=== PATIENT | male | born 1950 | race African-American/Black ===

== ENCOUNTER 2021-08-25 14:30 | Inpatient (IN) | payer BC, OTHER ==
[~2021-08-25] VITALS: Ht 172.7 cm; Wt 135.2 kg
[2021-08-25 15:01] VITALS: BP_SYST 176
--- NOTE | 2021-08-25 15:07 | NUR ---
Patient to ER bed TENT 01 for evaluation. Side rails up.
--- NOTE | 2021-08-25 15:35 | NUR ---
ER DR. CLARKE EXAMINING PT
[2021-08-25 17:20] LABS: BASOPHILS # (AUTO) 0.1 K/uL (0.0-0.2); BASOPHILS % (AUTO) 0.9 % (0.0-2.0); EOSINOPHILS # (AUTO) 0.2 K/uL (0.0-0.4); EOSINOPHILS % (AUTO) 3.2 % (0.0-4.0); HEMATOCRIT 39.2 % (36-54); HEMOGLOBIN 13.1 g/dL (14.0-18.0); LYMPHOCYTES # (AUTO) 1.5 K/uL (1.0-5.5); LYMPHOCYTES % (AUTO) 21.7 % (20.5-51.5); MEAN CORPUSCULAR HEMOGLOBIN 30 pg (27-31); MEAN CORPUSCULAR HGB CONC 34 % (32-36); MEAN CORPUSCULAR VOLUME 89 fL (79.0-98.0); MONOCYTES # (AUTO) 0.7 K/uL (0.0-1.0); NEUTROPHILS # (AUTO) 4.5 K/uL (1.8-7.7); NEUTROPHILS % (AUTO) 64.2 % (40.0-70.0); PLATELET COUNT (AUTO) 217 K/uL (130-430); RED BLOOD CELL COUNT(AUTO) 4.41 MIL/uL (4.2-6.2); RED CELL DISTRIBUTION WIDTH 15.4 % (9.0-15.0); WHITE BLOOD COUNT (AUTO) 7.1 K/uL (4.8-10.8)
[2021-08-25 17:25] LABS: ANION GAP 5 (5-15); CALCIUM 9.3 mg/dL (8.4-11.0); CHLORIDE 103 mmol/L (98-107); CREATININE 1.26 mg/dL (0.55-1.30); GLUCOSE 99 mg/dL (70-99); POTASSIUM 3.3 mmol/L (3.5-5.1); SODIUM SERUM 144 mmol/L (136-145); UREA NITROGEN, BLOOD 12 mg/dL (8-21)
[2021-08-25 17:27] LABS: GFR AFRICAN AMERICAN 73 mL/min (>90)
[2021-08-25 17:33] LABS: ALANINE AMINOTRANSFERASE 60 U/L (12-78); ALBUMIN 3.3 g/dL (3.4-4.8); ASPARTATE AMINOTRANSFERASE 31 U/L (10-37); TOTAL BILIRUBIN 0.8 mg/dL (0.0-1.0)
[2021-08-25] MEDS ORDERED: ENOXAPARIN SODIUM 100 MG/ML SYRINGE SUBCUT ONE (17:45)
[2021-08-25] MEDS ORDERED: ASPIRIN 325 MG TABLET PO ONE (17:45)
[2021-08-25] MEDS ORDERED: FUROSEMIDE 40 MG/4 ML VIAL IVP ONE (18:15)
--- NOTE | 2021-08-25 23:11 | NUR ---
PT BIB , WITH COMPLAINT OF SOB. PT STATED HE HAS NEVER EXPERIENCED THIS ISSUE BEFORE, PT STATED HE DOES NOT HAVE ANY PAIN. DOES HAVE SOME ADEMA BILATERAL TO LOWER EXTREMETIES. PT HR IS 47 ADV CHARGE NURSE NORAH. DR CASTLE WILL BE MADE AWRE ONCE HE RETURNS
[2021-08-25] MEDS ORDERED: ENOXAPARIN SODIUM 100 MG/ML SYRINGE ONE ×2 (23:19→23:35)
[2021-08-25] MEDS ORDERED: ASPIRIN 325 MG TABLET ONE (23:20)
[2021-08-25] MEDS ORDERED: FUROSEMIDE 40 MG/4 ML VIAL ONE (23:38)
--- NOTE | 2021-08-26 00:53 | NUR ---
Admit bed requested Patient will be admitted to care of [KATIE]. Admitted to [TELEMETRY] unit. Diagnosis [CHF, ELEVATED TRIPONIN] Inpatient (Yes or No) [Y] Observation (Yes or No) [N] Orientation concerns or request close to nursing station (Yes or No) [N] Covid Status [NEGATIVE] On vent or bipap [NO] Isolation requirements [NO] Needs a sitter [NO] From Home (Yes or if No enter name of facility) [YES] Requires Dialysis (Yes or No) [NO] Med Rec Completed (Yes of No) [YES]
[2021-08-26] MEDS ORDERED: SIMV20TA2 PO (00:59)
[2021-08-26] MEDS ORDERED: HYDR25TA4 PO (00:59)
[2021-08-26] MEDS ORDERED: ATEN50TA PO (00:59)
[2021-08-26] MEDS ORDERED: METF-518 PO (01:04)
[2021-08-26] MEDS ORDERED: GLIP10TA21 PO (01:04)
--- NOTE | 2021-08-26 01:33 | NUR ---
PT O2 SAT WAS DROPPING TO 88% HE SLEPT. PLACED PT ON NASAL CANULA AT 2L SAT ELEVATED TO 94%
--- NOTE | 2021-08-26 02:00 | NUR ---
Patient will be admitted to care of DR BANSAL. Admitted to unit. Will go to room . Belongings list completed. Complete and up to date summary report printed. SBAR report to be given at bedside with opportunity for questions.
--- NOTE | 2021-08-26 02:10 | NUR ---
ADMISSION NOTE Received patient from ER via gurney. Patient admitted with diagnosis of CHF, Elevated Troponin. Patient is awake, alert, oriented X 4. Patient oriented to hospital room, call light, toileting, pain management and safety-teach back done. Patient informed that MARBELLA Salazar will be primary nurse and that their room number is 111A. Personal belongings checked and Belongings List documented. Call light within reach.
--- NOTE | 2021-08-26 02:30 | NUR ---
CONSULTATION CALLED FOR DR. Lesly SHARMA FOR CONSULT FOR CHF. ELEVATED TROPONIN ORDER BY DR. SANCHEZ STAFF HUNG UP PHONE BEFORE NAME WAS PRESENTED
[2021-08-26 03:00] VITALS: BP_SYST 153; BP_SYST 155
--- NOTE | 2021-08-26 06:28 | NUR ---
pt.assessed.pt.presents quiescent affect;calm,somnolent.per flacc pain mgx pt.absent facial grimaces/body posturing. o2-sat%=96%.pt.capable to reposition self.call light/telephone w/in access of the pt.
--- NOTE | 2021-08-26 11:21 | NUR ---
CONSULTATION PAGED/CALLED Reason for Consultation: [] ABNORMAL CHEST XRAY Person Who was Notified: [] YANI Consulting Physician: [] DR CORTES Nut Sheller Machine Operator Specialty: [] PULMO Ordering Physician: [] DR BANSAL
[2021-08-26] MEDS ORDERED: FUROSEMIDE 40 MG/4 ML VIAL IVP ONE (12:00)
[2021-08-26] MEDS: SIMVASTATIN 20 MG TABLET PO SCH (17:30)
[2021-08-26] MEDS: ATENOLOL 50 MG TABLET (TENORMIN) PO SCH (17:30)
--- NOTE | 2021-08-26 17:56 | NUR ---
Dietitian Recommendations * Continue Cardiac diet LP, RD Please refer to Nutrition Assessment for details. Addendum: 08/26/21 at [address] Amended: Links added.
[2021-08-26] MEDS: glipiZIDE XL 5 MG TAB ( GLUCOTROL XL) PO SCH (18:32)
[2021-08-26] MEDS: FUROSEMIDE 40 MG/4 ML VIAL IVP SCH (23:13)
[2021-08-26] MEDS: HYDROCHLOROTHIAZIDE 25 MG TABLET (HCTZ) PO SCH (23:14)
[2021-08-27 07:22] LABS: CALCIUM 9.1 mg/dL (8.4-11.0); CREATININE 1.29 mg/dL (0.55-1.30)
[2021-08-27 07:36] LABS: BASOPHILS % (AUTO) 0.9 % (0.0-2.0); EOSINOPHILS # (AUTO) 0.2 K/uL (0.0-0.4); EOSINOPHILS % (AUTO) 4.5 % (0.0-4.0); HEMOGLOBIN 13.3 g/dL (14.0-18.0); LYMPHOCYTES % (AUTO) 21.4 % (20.5-51.5); MEAN CORPUSCULAR HEMOGLOBIN 30 pg (27-31); MEAN CORPUSCULAR HGB CONC 34 % (32-36); MEAN CORPUSCULAR VOLUME 88 fL (79.0-98.0); MONOCYTES # (AUTO) 0.6 K/uL (0.0-1.0); MONOCYTES % (AUTO) 11.6 % (1.7-9.3); NEUTROPHILS % (AUTO) 61.6 % (40.0-70.0); PLATELET COUNT (AUTO) 203 K/uL (130-430); RED BLOOD CELL COUNT(AUTO) 4.43 MIL/uL (4.2-6.2); RED CELL DISTRIBUTION WIDTH 15.5 % (9.0-15.0); WHITE BLOOD COUNT (AUTO) 4.9 K/uL (4.8-10.8)
--- NOTE | 2021-08-27 08:00 | NUR ---
AM NOTES AMBULATORY, HR ON 54/MIN ON HEART MONITOR, BP WAS ELEVATED. TROP 211. NOTIFIED DR Lesly SHARMA, WILL COME TO SEE PATIENT.
[2021-08-27 08:50] VITALS: BP_SYST 162
[2021-08-27] MEDS: ATENOLOL 50 MG TABLET (TENORMIN) PO SCH (09:00)
[2021-08-27] MEDS: FUROSEMIDE 40 MG/4 ML VIAL IVP SCH (09:31)
[2021-08-27] MEDS: HYDROCHLOROTHIAZIDE 25 MG TABLET (HCTZ) PO SCH (09:32)
[2021-08-27] MEDS: SIMVASTATIN 20 MG TABLET PO SCH (09:33)
[2021-08-27] MEDS: glipiZIDE XL 5 MG TAB ( GLUCOTROL XL) PO SCH (09:33)
--- NOTE | 2021-08-27 11:00 | NUR ---
SEEN BY DR SHARMA AND DR ROLF GALVIN CAME TO SEE PATIENT, MADE AWARE THAT HEART RATE IS ON LOW 50'S BUT WITH HIGH BP. DR BERNAL ORDERED A NEW MEDS TO PATIENT.
[2021-08-27] MEDS ORDERED: POTASSIUM CHLORIDE 20 MEQ TAB.PRT.SR PO ONE ×2 (11:15→17:00)
[2021-08-27] MEDS ORDERED: hydrALAZINE HCL 25 MG TABLET PO ONE (11:30)
[2021-08-27] MEDS ORDERED: SPIRONOLACTONE 25 MG TABLET (ALDACTONE) PO ONE (11:30)
[2021-08-27 12:44] VITALS: BP_SYST 166
[2021-08-27 16:21] VITALS: BP_SYST 154
--- NOTE | 2021-08-27 18:00 | NUR ---
NOTES AMBULATE, NO SOB NOTED
[2021-08-27 19:30] VITALS: BP_SYST 178
--- NOTE | 2021-08-27 19:30 | NUR ---
OPENING NOTES: Patient received from AM shift nurse. Patient is AA&Ox4 able to make needs known with and call light within reach. Patient denies any pain or distress at this time. Patient is on RA and is currently tolerating it well and is on tele monitoring. Patient ambulates as independently and has a steady gait. Safety measures have been placed per protocol. Will continue to monitor throughout the shift.
[2021-08-27 20:00] VITALS: BP_SYST 178
[2021-08-27] MEDS: SPIRONOLACTONE 25 MG TABLET (ALDACTONE) PO SCH (21:09)
[2021-08-27] MEDS: hydrALAZINE HCL 25 MG TABLET PO SCH (21:11)
[2021-08-28] VITALS: BP_SYST 132
--- NOTE | 2021-08-28 00:15 | NUR ---
ROUNDS: Patient is in bed resting no s/s of distress is noted at this time. Vital s/s are within normal range at this time after the administration of 2100 meds. Patient remains on tele monitoring, and call light is within reach. Will continue to monitor throughout the shift.
[2021-08-28] MEDS: hydrALAZINE HCL 25 MG TABLET PO SCH ×2 (05:50→14:10)
--- NOTE | 2021-08-28 06:36 | NUR ---
CLOSING NOTES: Patient is bed resting no s/s of distress is noted at this time. Patient is alert and able to make needs known, denying any pain or distress at this time. Patient has call light within reach and is currently stable. All current shift needs have been met at this time. Safety measures remain in place. Will differ current care to AM shift for continuity of care.
[2021-08-28 08:00] VITALS: BP_SYST 166
--- NOTE | 2021-08-28 08:00 | NUR ---
INITIAL NOTES PATIENT IS AOX4. NO S/S OF DISTRESS NOTED. PATIENT DENIES ANY PAIN. AMBULATORY WITH A STEADY GAIT. PATIENT BREATHING IS EVEN AND NON LABORED. VITAL SIGNS OBTAINED, DOCUMENTED. BREAKFAST ON BEDSIDE TABLE. PATIENT IS EATING. SAFETY PRECAUTIONS IN PLACE AND CALL LIGHT WITHIN REACH.
[2021-08-28] MEDS: ATENOLOL 50 MG TABLET (TENORMIN) PO SCH (09:00)
[2021-08-28] MEDS ORDERED: FUROSEMIDE 40 MG TABLET PO SCH (09:00)
[2021-08-28] MEDS ORDERED: HYDROCHLOROTHIAZIDE 25 MG TABLET (HCTZ) PO SCH (09:00)
[2021-08-28 09:45] LABS: BASOPHILS # (AUTO) 0.1 K/uL (0.0-0.2); BASOPHILS % (AUTO) 1.2 % (0.0-2.0); EOSINOPHILS # (AUTO) 0.2 K/uL (0.0-0.4); EOSINOPHILS % (AUTO) 3.3 % (0.0-4.0); HEMATOCRIT 40.1 % (36-54); HEMOGLOBIN 13.5 g/dL (14.0-18.0); LYMPHOCYTES % (AUTO) 19.5 % (20.5-51.5); MEAN CORPUSCULAR HEMOGLOBIN 30 pg (27-31); MEAN CORPUSCULAR HGB CONC 34 % (32-36); MEAN CORPUSCULAR VOLUME 89 fL (79.0-98.0); MONOCYTES # (AUTO) 0.7 K/uL (0.0-1.0); MONOCYTES % (AUTO) 13.8 % (1.7-9.3); NEUTROPHILS # (AUTO) 3.2 K/uL (1.8-7.7); NEUTROPHILS % (AUTO) 62.2 % (40.0-70.0); PLATELET COUNT (AUTO) 207 K/uL (130-430); RED BLOOD CELL COUNT(AUTO) 4.48 MIL/uL (4.2-6.2); RED CELL DISTRIBUTION WIDTH 15.3 % (9.0-15.0); WHITE BLOOD COUNT (AUTO) 5.2 K/uL (4.8-10.8)
[2021-08-28] MEDS: SIMVASTATIN 20 MG TABLET PO SCH (09:49)
[2021-08-28] MEDS: SPIRONOLACTONE 25 MG TABLET (ALDACTONE) PO SCH (09:50)
[2021-08-28] MEDS: glipiZIDE XL 5 MG TAB ( GLUCOTROL XL) PO SCH (09:52)
[2021-08-28] MEDS ORDERED: ALBMDI INH (09:56)
[2021-08-28] MEDS ORDERED: DAPA5TAB PO (09:56)
[2021-08-28] MEDS ORDERED: ASPI-859 PO (09:56)
[2021-08-28] MEDS ORDERED: HYDR-4038 PO (09:56)
[2021-08-28] MEDS ORDERED: SPIR25TA PO (09:56)
[2021-08-28] MEDS ORDERED: FURO-149 PO (09:56)
[2021-08-28 09:59] LABS: ALBUMIN 3.1 g/dL (3.4-4.8); CALCIUM 8.9 mg/dL (8.4-11.0); CREATININE 1.49 mg/dL (0.55-1.30); POTASSIUM 3.6 mmol/L (3.5-5.1); TOTAL BILIRUBIN 0.9 mg/dL (0.0-1.0)
[2021-08-28 12:00] VITALS: BP_SYST 144
--- NOTE | 2021-08-28 12:00 | NUR ---
NOTES PATIENT IS EATING DINNER. NO S/S DISTRESS NOTED. DENIES ANY PAIN. SAFETY PRECAUTIONS IN PLACE AND CALL LIGHT WITHIN REACH.
[2021-08-28 13:45] VITALS: BP_SYST 144
--- NOTE | 2021-08-28 14:58 | NUR ---
INITIAL NOTES PATIENT IS AOX4. NO S/S OF DISTRESS NOTED. PATIENT DENIES ANY PAIN. AMBULATORY WITH A STEADY GAIT. PATIENT BREATHING IS EVEN AND NON LABORED. VITAL SIGNS OBTAINED, DOCUMENTED. BREAKFAST ON BEDSIDE TABLE. PATIENT IS EATING. SAFETY PRECAUTIONS IN PLACE AND CALL LIGHT WITHIN REACH. Addendum: 08/28/21 at 1501 by Linda Trejo LVN WRONG DOCUMENTATION
--- NOTE | 2021-08-28 15:45 | NUR ---
Notes Patient waiting for his to pick him up, refused his vital signs to be taken.
--- NOTE | 2021-08-28 16:15 | NUR ---
Discharge Patient is awake, alert, and oriented. Ambulatory with a steady gait. Patient's breathing is even and nonlabored. No acute s/s of distress noted. Patient denies any SOB and/ or pain. Patient was given medication reconciliation and new prescription forms. Discharge instructions given, patient verbalized understanding. Patient in stable condition, ID band removed. IV removed, no active bleeding, and clean dressing applied. Patient educated on follow up care instructions, medications, and pain management. All belongings sent with patient.
== END 2021-08-28 16:15 | disposition home or self-care (01) | DRG 280 ==
LOC: SED 14:30 → STU 19:25
PROVIDERS: ADMIT Preventive Medicine Preventive Medicine/Occupational Environmental Medicine; ATTEND Preventive Medicine Preventive Medicine/Occupational Environmental Medicine
DX: I13.0 Hypertensive heart and chronic kidney disease with heart failure and stage 1 through stage 4 chronic kidney disease, or unspecified chronic kidney disease (principal); I21.4 Non-ST elevation (NSTEMI) myocardial infarction; I50.23 Acute on chronic systolic (congestive) heart failure; J96.00 Acute respiratory failure, unspecified whether with hypoxia or hypercapnia; E66.2 Morbid (severe) obesity with alveolar hypoventilation; Z68.42 Body mass index [BMI] 45.0-49.9, adult; E87.6 Hypokalemia; Z20.822 Contact with and (suspected) exposure to COVID-19; E11.22 Type 2 diabetes mellitus with diabetic chronic kidney disease; N18.31 Chronic kidney disease, stage 3a; E88.09 Other disorders of plasma-protein metabolism, not elsewhere classified; E78.5 Hyperlipidemia, unspecified; Z79.84 Long term (current) use of oral hypoglycemic drugs; Z79.899 Other long term (current) drug therapy; Z88.0 Allergy status to penicillin; Z88.8 Allergy status to other drugs, medicaments and biological substances
CPT/HCPCS: 36415; 71045; 80048; 80053; 82550; 82962; 83880; 84484; 85025; 85379; 93005; 93306; 96372; 96374; 99291; G0378; J1650; J1940